=== PATIENT | male | born 1975 | race Caucasian/White ===

== ENCOUNTER → 2017-11-26 | Outpatient (CLI) | payer OTHER ==
[2017-11-26 07:19] LABS: BASO # 0.1 10^3/uL (0.0-0.2); EOS # 0.3 10^3/uL (0.0-0.50); EOS % 4.1 % (0.0-3.0); HEMATOCRIT 45.7 % (42.0-52.0); HEMOGLOBIN 16.1 g/dl (13.5-17.5); IMMATURE GRANULOCYTE % 0.4 % (0-3.0); LYMPH # 2.9 10^3/uL (1.5-4.5); LYMPH % 41.8 % (24.0-44.0); MEAN CORPUSCULAR HEMOGLOBIN 29.7 pg (27.0-33.0); MEAN CORPUSCULAR HGB CONC 35.2 g/dl (32.0-36.5); MEAN CORPUSCULAR VOLUME 84.3 fl (80.0-96.0); MONO # 0.8 10^3/uL (0.0-0.8); MONO % 11.1 % (0.0-5.0); NEUTROPHILS # 2.9 10^3/uL (1.8-7.7); NEUTROPHILS % 41.6 % (36.0-66.0); PLATELET COUNT, AUTOMATED 215 10^3/uL (150-450); RED BLOOD COUNT 5.42 10^6/uL (4.30-6.10); RED CELL DISTRIBUTION WIDTH 13.2 % (11.5-14.5); WHITE BLOOD COUNT 6.9 10^3/uL (4.0-10.0)
[2017-11-26 07:24] LABS: APPEARANCE, URINE CLEAR (CLEAR); BACTERIA, URINE AUTO NEGATIVE (NEGATIVE); BILIRUBIN, URINE AUTO NEGATIVE (NEGATIVE); BLOOD, URINE BLOOD NEGATIVE (NEGATIVE); COLOR, URINE YELLOW (YELLOW); GLUCOSE, URINE (UA) AUTO NEGATIVE (NEGATIVE); KETONE, URINE AUTO NEGATIVE (NEGATIVE); LEUKOCYTE ESTERASE, URINE AUTO NEGATIVE (NEGATIVE); MUCUS, URINE SMALL (NEGATIVE); NITRITE, URINE AUTO NEGATIVE (NEGATIVE); PROTEIN, URINE AUTO NEGATIVE (NEGATIVE); RBC, URINE AUTO 3 /HPF (0-3); SPECIFIC GRAVITY URINE AUTO 1.019 (1.002-1.035); SQUAMOUS EPITHELIAL CELL UR AU 0 /HPF (0-6); WBC, URINE AUTO 0 /HPF (0-3)
[2017-11-26 07:44] LABS: ALBUMIN 3.6 GM/DL (3.2-5.2); ALBUMIN/GLOBULIN RATIO 0.97 (1.00-1.93); ALKALINE PHOSPHATASE 107 U/L (45-117); ALT/SGPT 158 U/L (12-78); ANION GAP 7 MEQ/L (8-16); AST/SGOT 75 U/L (7-37); BILIRUBIN,TOTAL 0.5 MG/DL (0.2-1.0); BLOOD UREA NITROGEN 16 MG/DL (7-18); CALCIUM LEVEL 8.6 MG/DL (8.5-10.1); CARBON DIOXIDE LEVEL 28 MEQ/L (21-32); CHLORIDE LEVEL 107 MEQ/L (98-107); CREATININE FOR GFR 0.88 MG/DL (0.70-1.30); GLOMERULAR FILTRATION RATE > 60.0 (>60); GLUCOSE, FASTING 114 MG/DL (70-100); POTASSIUM SERUM 4.5 MEQ/L (3.5-5.1); SODIUM LEVEL 142 MEQ/L (136-145); TOTAL PROTEIN 7.3 GM/DL (6.4-8.2)
[2017-11-26 10:37] LABS: HEPATITIS B SURFACE ANTIGEN NEGATIVE (NEGATIVE)
[2017-11-26 10:45] LABS: HEPATITIS B SURFACE ANTIBODY POSITIVE (POSITIVE)
[2017-11-26 10:54] LABS: HEPATITIS B CORE ANTIBODY IGM NEGATIVE (NEGATIVE)
[2017-11-26 10:56] LABS: HEPATITIS A ANTIBODY IGM NEGATIVE (NEGATIVE)
[2017-11-26 11:14] LABS: HEPATITIS C VIRUS ABY INDEX > 11.0 INDEX (<0.8)
[2017-11-29 08:19] LABS: HCV RNA NAA QUALITATIVE Positive (Negative)
== END ==
LOC: M LAB 06:17
DX: F15.20 Other stimulant dependence, uncomplicated (principal); G25.9 Extrapyramidal and movement disorder, unspecified
CPT/HCPCS: 84460

== ENCOUNTER 2018-01-07 11:02 | Emergency (ER) | payer OTHER ==
[2018-01-07] MEDS: methylPREDNISolone INJ 125 MG/2 ML VIAL (J2930) IM (13:07)
[2018-01-07] MEDS: ACETAMINOPHEN 325 MG TAB PO (13:08)
[2018-01-07] MEDS: METAXALONE 800 MG TABLET PO (13:17)
== END 2018-01-07 13:34 | disposition home or self-care (01) ==
LOC: M ED 11:02
DX: M54.9 Dorsalgia, unspecified (principal); G89.29 Other chronic pain; F31.9 Bipolar disorder, unspecified; F17.210 Nicotine dependence, cigarettes, uncomplicated; Z79.899 Other long term (current) drug therapy
CPT/HCPCS: J2930

== ENCOUNTER → 2018-01-25 | Outpatient (REF) | payer OTHER ==
[2018-01-25 11:03] LABS: ALBUMIN 3.4 GM/DL (3.2-5.2); ALBUMIN/GLOBULIN RATIO 0.97 (1.00-1.93); ALKALINE PHOSPHATASE 68 U/L (45-117); ALT/SGPT 39 U/L (12-78); AST/SGOT 18 U/L (7-37); BILIRUBIN,DIRECT < 0.1 MG/DL (0.0-0.2); BILIRUBIN,TOTAL 0.4 MG/DL (0.2-1.0); TOTAL PROTEIN 6.9 GM/DL (6.4-8.2)
[2018-01-27 14:14] LABS: HEPATITIS C QUANTITATION <15 IU/mL (.)
== END ==
LOC: M SFHCPLAZ 08:25
DX: B18.2 Chronic viral hepatitis C (principal)
CPT/HCPCS: 80076

== ENCOUNTER → 2018-03-29 | Outpatient (REF) | payer OTHER ==
[2018-03-29 11:11] LABS: ALBUMIN 3.8 GM/DL (3.2-5.2); ALBUMIN/GLOBULIN RATIO 1.12 (1.00-1.93); ALKALINE PHOSPHATASE 70 U/L (45-117); ALT/SGPT 43 U/L (12-78); AST/SGOT 23 U/L (7-37); BILIRUBIN,DIRECT < 0.1 MG/DL (0.0-0.2); BILIRUBIN,TOTAL 0.3 MG/DL (0.2-1.0); TOTAL PROTEIN 7.2 GM/DL (6.4-8.2)
[2018-03-31 17:43] LABS: HEPATITIS C QUANTITATION HCV Not Detected IU/mL (.)
== END ==
LOC: M SFHCPLAZ 08:25
DX: B18.2 Chronic viral hepatitis C (principal)
CPT/HCPCS: 80076

== ENCOUNTER → 2018-10-19 | Outpatient (CLI) | payer OTHER ==
[~2018-10-19] MED LIST: APAP500T10 PO; GEOD20CA14 PO; MEDR4PAK PO; MOTR200T44 PO; TRIL1TAB PO; ZANA4TAB PO
[2018-10-19 10:16] LABS: APPEARANCE, URINE CLEAR (CLEAR); BACTERIA, URINE AUTO NEGATIVE (NEGATIVE); BILIRUBIN, URINE AUTO NEGATIVE (NEGATIVE); BLOOD, URINE BLOOD NEGATIVE (NEGATIVE); COLOR, URINE YELLOW (YELLOW); GLUCOSE, URINE (UA) AUTO NEGATIVE (NEGATIVE); KETONE, URINE AUTO NEGATIVE (NEGATIVE); LEUKOCYTE ESTERASE, URINE AUTO NEGATIVE (NEGATIVE); MUCUS, URINE SMALL (NEGATIVE); NITRITE, URINE AUTO NEGATIVE (NEGATIVE); PROTEIN, URINE AUTO NEGATIVE (NEGATIVE); RBC, URINE AUTO 4 /HPF (0-3); SPECIFIC GRAVITY URINE AUTO 1.024 (1.002-1.035); SQUAMOUS EPITHELIAL CELL UR AU 0 /HPF (0-6); UROBILINOGEN, URINE AUTO 0.2 mg/dL (0.0-2.0); WBC, URINE AUTO 0 /HPF (0-3)
[2018-10-19 10:17] LABS: BASO # 0.1 10^3/uL (0.0-0.2); BASO % 1.1 % (0.0-1.0); EOS # 0.3 10^3/uL (0.0-0.50); EOS % 4.3 % (0.0-3.0); HEMATOCRIT 44.3 % (42.0-52.0); HEMOGLOBIN 15.4 g/dl (13.5-17.5); LYMPH # 2.6 10^3/uL (1.5-4.5); LYMPH % 36.9 % (24.0-44.0); MEAN CORPUSCULAR HEMOGLOBIN 30.9 pg (27.0-33.0); MEAN CORPUSCULAR HGB CONC 34.8 g/dl (32.0-36.5); MEAN CORPUSCULAR VOLUME 88.8 fl (80.0-96.0); MONO # 0.7 10^3/uL (0.0-0.8); MONO % 9.7 % (0.0-5.0); NEUTROPHILS # 3.3 10^3/uL (1.8-7.7); NEUTROPHILS % 47.7 % (36.0-66.0); PLATELET COUNT, AUTOMATED 248 10^3/uL (150-450); RED BLOOD COUNT 4.99 10^6/uL (4.30-6.10)
[2018-10-19 11:54] LABS: ALBUMIN 3.2 GM/DL (3.2-5.2); BILIRUBIN,TOTAL 0.5 MG/DL (0.2-1.0); BLOOD UREA NITROGEN 24 MG/DL (7-18); CALCIUM LEVEL 8.4 MG/DL (8.5-10.1); CARBON DIOXIDE LEVEL 25 MEQ/L (21-32); CHLORIDE LEVEL 104 MEQ/L (98-107); CREATININE FOR GFR 1.02 MG/DL (0.70-1.30); GLOMERULAR FILTRATION RATE > 60.0 (>60); GLUCOSE, FASTING 130 MG/DL (70-100); HEPATITIS A ANTIBODY IGM NEGATIVE (NEGATIVE); HEPATITIS B CORE ANTIBODY IGM NEGATIVE (NEGATIVE); HEPATITIS B SURFACE ANTIGEN NEGATIVE (NEGATIVE); POTASSIUM SERUM 4.3 MEQ/L (3.5-5.1); SODIUM LEVEL 135 MEQ/L (136-145)
[2018-10-19 11:55] LABS: HEPATITIS C VIRUS ABY INDEX > 11.0 INDEX (<0.8)
[2018-10-19 13:21] LABS: ALT/SGPT 90 U/L (12-78)
== END ==
LOC: M LAB 09:03
PROVIDERS: ATTEND Physician Assistant Medical
DX: Z02.2 Encounter for examination for admission to residential institution (principal)

== ENCOUNTER → 2018-10-19 | Outpatient (CLI) | payer OTHER ==
[2018-10-19 10:16] LABS: HEMATOCRIT 43.4 % (42.0-52.0); HEMOGLOBIN 15.1 g/dl (13.5-17.5); MEAN CORPUSCULAR HEMOGLOBIN 30.2 pg (27.0-33.0); MEAN CORPUSCULAR HGB CONC 34.8 g/dl (32.0-36.5); MEAN CORPUSCULAR VOLUME 86.8 fl (80.0-96.0); PLATELET COUNT, AUTOMATED 245 10^3/uL (150-450); WHITE BLOOD COUNT 7.4 10^3/uL (4.0-10.0)
[2018-10-19 11:54] LABS: ALBUMIN 3.2 GM/DL (3.2-5.2); BILIRUBIN,TOTAL 0.4 MG/DL (0.2-1.0); BLOOD UREA NITROGEN 23 MG/DL (7-18); CALCIUM LEVEL 8.5 MG/DL (8.5-10.1); CARBON DIOXIDE LEVEL 25 MEQ/L (21-32); CHLORIDE LEVEL 104 MEQ/L (98-107); CREATININE FOR GFR 1.03 MG/DL (0.70-1.30); GLOMERULAR FILTRATION RATE > 60.0 (>60); GLUCOSE, FASTING 132 MG/DL (70-100); HEPATITIS B SURFACE ANTIGEN NEGATIVE (NEGATIVE); HIV 1&2 SCREEN CENTAUR NEGATIVE (NEGATIVE); POTASSIUM SERUM 4.4 MEQ/L (3.5-5.1); SODIUM LEVEL 135 MEQ/L (136-145)
[2018-10-19 11:55] LABS: HEPATITIS C VIRUS ABY INDEX > 11.0 INDEX (<0.8)
[2018-10-19 12:35] LABS: CHLAMYDIA DNA AMPLIFICATION NEGATIVE (NEGATIVE); GC DNA AMPLIFICATION NEGATIVE (NEGATIVE)
[2018-10-19 13:22] LABS: ALT/SGPT 90 U/L (12-78)
--- NOTE | 2018-10-20 19:07 | ECGEPIP ---
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
== END ==
LOC: M LAB 08:53
PROVIDERS: ATTEND Family Medicine
DX: F11.20 Opioid dependence, uncomplicated (principal)

== ENCOUNTER → 2018-10-25 | Outpatient (CLI) | payer OTHER ==
[~2018-10-25] MED LIST changes: +ACET-683 PO; +ACET1TAB55 PO; +BUPR150T3 PO; +HYDR50CA2 PO; +IBUP1TAB6 PO; +LITH150C PO; +LITH300C PO; +METH10TA2 PO; +METH5SOL PO; +OLAN10TA2 PO; +OMEP-218 PO; +TRIA1OI80 TOP
[2018-10-25 08:04] LABS: ALBUMIN 3.6 GM/DL (3.2-5.2); ALT/SGPT 60 U/L (12-78); BILIRUBIN,TOTAL 0.3 MG/DL (0.2-1.0); BLOOD UREA NITROGEN 21 MG/DL (7-18); CALCIUM LEVEL 8.8 MG/DL (8.5-10.1); CARBON DIOXIDE LEVEL 26 MEQ/L (21-32); CHLORIDE LEVEL 104 MEQ/L (98-107); CHOLESTEROL LEVEL 258 MG/DL (<200); CHOLESTEROL RISK RATIO 8.896 (<5); GLOMERULAR FILTRATION RATE > 60.0 (>60); GLUCOSE, FASTING 138 MG/DL (70-100); HDL CHOLESTEROL 29 MG/DL (>40); LITHIUM LEVEL 0.33 MEQ/L (0.60-1.20); NON-HDL-C 229 MG/DL; POTASSIUM SERUM 3.9 MEQ/L (3.5-5.1); SODIUM LEVEL 138 MEQ/L (136-145); TOTAL PROTEIN 6.7 GM/DL (6.4-8.2); TRIGLYCERIDES LEVEL 687 MG/DL (<150)
[2018-10-25 11:40] LABS: HEMOGLOBIN A1c 5.7 %
== END ==
LOC: M LAB 06:51
PROVIDERS: ATTEND Nurse Practitioner Family
DX: Z51.81 Encounter for therapeutic drug level monitoring (principal); F31.9 Bipolar disorder, unspecified

== ENCOUNTER 2018-10-29 09:44 | Emergency (ER) | payer OTHER ==
[~2018-10-29] VITALS: Ht 177.8 cm; Wt 110.6 kg
[~2018-10-29 09:44] MED LIST changes: -ACET-683 PO; -ACET1TAB55 PO; -BUPR150T3 PO; -HYDR50CA2 PO; -IBUP1TAB6 PO; -LITH150C PO; -LITH300C PO; -METH10TA2 PO; -METH5SOL PO; -OLAN10TA2 PO; -OMEP-218 PO; -TRIA1OI80 TOP
[2018-10-29] MEDS ORDERED: NS 1,000 ML IV ONE (10:15)
[2018-10-29] MEDS ORDERED: ACETAMINOPHEN 325 MG TAB PO ONE (10:45)
--- NOTE | 2018-10-29 10:55 | REP ---
Clinical: Acute chest pain . Comparison: None . Findings: The mediastinum and cardiac silhouette are stable and within normal limits for portable technique. The lung means are clear without acute consolidation, effusion, or pneumothorax. Skeletal structures are intact. Impression: No acute cardiopulmonary process appreciated. Electronically Signed by Stanislav Aceves MD 10/29/2018 10:46 A
[2018-10-29 11:00] LABS: ALBUMIN 3.2 GM/DL (3.2-5.2); ALT/SGPT 38 U/L (12-78); BILIRUBIN,DIRECT 0.1 MG/DL (0.0-0.2); BILIRUBIN,TOTAL 0.4 MG/DL (0.2-1.0); BLOOD UREA NITROGEN 18 MG/DL (7-18); CALCIUM LEVEL 8.1 MG/DL (8.5-10.1); CARBON DIOXIDE LEVEL 27 MEQ/L (21-32); CHLORIDE LEVEL 102 MEQ/L (98-107); CPK CREATINE PHOSPHOKINASE 327 U/L (39-308); CREATININE FOR GFR 1.07 MG/DL (0.70-1.30); FREE T4 0.83 NG/DL (0.76-1.46); GLOMERULAR FILTRATION RATE > 60.0 (>60); GLUCOSE, FASTING 111 MG/DL (70-100); LIPASE 147 U/L (73-393); MB/CK RELATIVE INDEX 1.22 (< OR =4); POTASSIUM SERUM 4.2 MEQ/L (3.5-5.1); SODIUM LEVEL 134 MEQ/L (136-145); TROPONIN I < 0.02 NG/ML (< 0.10)
[2018-10-29 11:05] VITALS: BP 121/76
[2018-10-29 11:05] LABS: INFLUENZA A AMPLIFICATION NEGATIVE (NEGATIVE); INFLUENZA B AMPLIFICATION NEGATIVE (NEGATIVE)
--- NOTE | 2018-10-29 11:05 | REP ---
Clinical: Lower extremity pain and swelling with erythema . Technique: Casas scale and color Doppler evaluation using linear high frequency transducer. Findings: Ultrasound examination of the right and left lower extremity deep venous structures from the common femoral vein to the popliteal vein demonstrates normal compressibility flow and wave patterns in response to respiration and augmentation. There is no evidence for deep venous thrombosis. Impression: No evidence for deep venous thrombosis of the bilateral lower extremities . Electronically Signed by Stanislav Aceves MD 10/29/2018 10:57 A
[2018-10-29 11:34] LABS: BASO % 0.3 % (0.0-1.0); EOS # 0.2 10^3/uL (0.0-0.50); EOS % 1.9 % (0.0-3.0); HEMATOCRIT 39.1 % (42.0-52.0); HEMOGLOBIN 13.2 g/dl (13.5-17.5); LYMPH # 1.5 10^3/uL (1.5-4.5); LYMPH % 12.5 % (24.0-44.0); MEAN CORPUSCULAR HEMOGLOBIN 30.2 pg (27.0-33.0); MEAN CORPUSCULAR HGB CONC 33.8 g/dl (32.0-36.5); MEAN CORPUSCULAR VOLUME 89.5 fl (80.0-96.0); MONO # 1.7 10^3/uL (0.0-0.8); MONO % 14.2 % (0.0-5.0); NEUTROPHILS # 8.4 10^3/uL (1.8-7.7); NEUTROPHILS % 70.5 % (36.0-66.0); PLATELET COUNT, AUTOMATED 169 10^3/uL (150-450); RED BLOOD COUNT 4.37 10^6/uL (4.30-6.10); WHITE BLOOD COUNT 11.9 10^3/uL (4.0-10.0)
[2018-10-29] MEDS ORDERED: DALBAVANCIN 1,500 MG in D5W 500 ML IV SCH (12:00)
[2018-10-29 12:10] LABS: ERYTHROCYTE SEDIMENTATION RATE 27 mm/hr (0-15)
--- NOTE | 2018-10-29 19:30 | ECGEPIP ---
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
== END 2018-10-29 13:18 | disposition left against medical advice (07) ==
LOC: M ED 09:44
DX: L03.115 Cellulitis of right lower limb (principal); L03.116 Cellulitis of left lower limb; I47.1 Supraventricular tachycardia; F17.200 Nicotine dependence, unspecified, uncomplicated; F14.10 Cocaine abuse, uncomplicated
CPT/HCPCS: 36415; 71045; 80048; 80076; 81001; 82550; 82553; 83605; 83690; 84439; 84443; 85025; 85652; 86140; 87040; 87502; 93005; 93041; 93970; 94760; 96374; 99285; J0875

== ENCOUNTER 2018-10-31 14:17 | Observation (INO) | payer OTHER ==
[~2018-10-31] VITALS: Ht 177.8 cm; Wt 110.7 kg
[2018-10-31] MEDS ORDERED: HYDR50CA2 PO (14:26)
[2018-10-31] MEDS ORDERED: OMEP-218 PO (14:26)
[2018-10-31] MEDS ORDERED: LITH150C PO (14:26)
[2018-10-31] MEDS ORDERED: BUPR150T3 PO (14:26)
[2018-10-31] MEDS ORDERED: OLAN10TA2 PO (14:26)
[2018-10-31] MEDS ORDERED: METH10TA2 PO (14:26)
[2018-10-31] MEDS ORDERED: LITH300C PO (14:26)
[2018-10-31 15:48] LABS: BASO # 0.1 10^3/uL (0.0-0.2); BASO % 0.6 % (0.0-1.0); EOS # 0.4 10^3/uL (0.0-0.50); EOS % 4.6 % (0.0-3.0); HEMATOCRIT 39.5 % (42.0-52.0); HEMOGLOBIN 13.3 g/dl (13.5-17.5); LYMPH # 1.8 10^3/uL (1.5-4.5); LYMPH % 19.8 % (24.0-44.0); MEAN CORPUSCULAR HEMOGLOBIN 30.2 pg (27.0-33.0); MEAN CORPUSCULAR HGB CONC 33.7 g/dl (32.0-36.5); MEAN CORPUSCULAR VOLUME 89.6 fl (80.0-96.0); MONO # 0.9 10^3/uL (0.0-0.8); MONO % 9.9 % (0.0-5.0); NEUTROPHILS # 5.7 10^3/uL (1.8-7.7); NEUTROPHILS % 64.9 % (36.0-66.0); PLATELET COUNT, AUTOMATED 204 10^3/uL (150-450); RED BLOOD COUNT 4.41 10^6/uL (4.30-6.10); WHITE BLOOD COUNT 8.9 10^3/uL (4.0-10.0)
[2018-10-31] MEDS ORDERED: KETOROLAC 30 MG/ML VIAL (J1885) IV ONE (16:00)
[2018-10-31] MEDS ORDERED: NS 1,000 ML IV ONE (16:00)
[2018-10-31 16:01] LABS: BLOOD UREA NITROGEN 14 MG/DL (7-18); CALCIUM LEVEL 8.2 MG/DL (8.5-10.1); CARBON DIOXIDE LEVEL 32 MEQ/L (21-32); CHLORIDE LEVEL 100 MEQ/L (98-107); CREATININE FOR GFR 1.04 MG/DL (0.70-1.30); GLOMERULAR FILTRATION RATE > 60.0 (>60); GLUCOSE, FASTING 152 MG/DL (70-100); POTASSIUM SERUM 3.9 MEQ/L (3.5-5.1); SODIUM LEVEL 138 MEQ/L (136-145)
[2018-10-31 16:16] LABS: ERYTHROCYTE SEDIMENTATION RATE 42 mm/hr (0-15)
--- NOTE | 2018-10-31 17:02 | REP ---
Clinical: Bilateral pain and swelling with cellulitis. Technique: Casas scale and color Doppler evaluation using linear high frequency transducer. Findings: Ultrasound examination of the right and left lower extremity deep venous structures from the common femoral vein to the popliteal vein demonstrates normal compressibility flow and wave patterns in response to respiration and augmentation. There is no evidence for deep venous thrombosis. Mild subcutaneous edema is appreciated along with bilateral inguinal lymph nodes measuring up to 5.1 x 1.1 x 1.7 cm on the right and 4.1 x 2.6 x 1.1 cm on the left. Impression: No evidence for deep venous thrombosis. Mild edema and inguinal adenopathy. Electronically Signed by Stanislav Aceves MD 10/31/2018 04:54 P
[2018-10-31] MEDS ORDERED: MOM 30ML SUSPENSION UDC PO PRN (18:00)
[2018-10-31] MEDS ORDERED: ACETAMINOPHEN TAB 650MG DOSE (2X325MG) PO PRN (18:00)
[2018-10-31 18:05] LABS: ALBUMIN 3.2 GM/DL (3.2-5.2); ALT/SGPT 39 U/L (12-78); BILIRUBIN,DIRECT 0.2 MG/DL (0.0-0.2); BILIRUBIN,TOTAL 0.5 MG/DL (0.2-1.0); NT-PRO BNP 95 PG/ML (<125)
[2018-10-31] MEDS ORDERED: IBUP1TAB6 PO (18:23)
[2018-10-31] MEDS ORDERED: ACET1TAB55 PO (18:23)
[2018-10-31] MEDS ORDERED: ACET-683 PO (18:23)
[2018-10-31] MEDS ORDERED: METH5SOL PO (18:23)
[2018-10-31] MEDS ORDERED: VANCOMYCIN HCL 1,000 MG, VIAL MATE ADAPTER 1 EACH in D5W 250 ML IV ONE ×2 (18:30→19:30)
--- NOTE | 2018-10-31 18:57 | HPEPDOC ---
General Date of Admission 10/31/2018 Date of Service: October 31, 2018 Attending Physician: MICHELLE ALBRECHT MD Chief Complaint The patient is a 43-year-old male admitted with a reason for visit of Recheck. Source: Patient Exam Limitations: No limitations Timing/Duration: Day(s) Severity: Moderate Associated Symptoms: Rash History of Present Illness Patient is a 43-year-old male, past medical history significant for polysubstance abuse with IV cocaine, nicotine dependence, hepatitis C, bipolar disorder, currently resident of a [facility], presenting to the emergency room for the second time on account of cellulitis. Patient states Wednesday last week he was about to get dressed when he noticed redness to his legs.Hoping it would resolve, he did seek medical attention until Wednesday, which was almost 4 days later. In the emergency room, patient was treated with antibiotic therapy-Dalvance. He left prior to further evaluation. ED providers had recommended staying for further evaluation and management. During that presentation. Patient also had an episode of SVT. Patient reports his heart rate went as high as 240s. He returned to the emergency room today when cellulitis was not improving. Laboratory data was abnormal for elevated C-reactive protein. Concerned about worsening infectious process. Hospitalist team was endorsed for evaluation for admission. On assessment. He denies any chills, fever, chest pain, shortness of breath. He complains about soreness and tenderness to bilateral lower extremity. He denies wearing any long socks along shoes which may have caused contact dermatitis. He also denies working in any kind of chemical environment or exposure to any chemicals. Of note, patient states he was diagnosed with, and treated for hepati tis C with last year. He also did present to the emergency room in August with cellulitis which was treated. Home Medications Scheduled Bupropion Hcl (Bupropion Xl) 150 Mg Tab.er.24h, 150 MG PO DAILY, (Reported) Hydroxyzine Pamoate (Hydroxyzine Pamoate) 50 Mg Capsule, 50 MG PO QHS, (Reported) Harrah Carbonate (Harrah Carbonate) 150 Mg Capsule, 150 MG PO BID, (Reported) TAKE WITH 300MG CAP. 450MG TOTAL Harrah Carbonate (Harrah Carbonate) 300 Mg Capsule, 300 MG PO BID, (Reported) TAKE WITH 150MG CAP. 450MG TOTAL Methadone HCl (Methadone HCl) 5 Mg/5 Ml Solution, 30 MG PO DAILY, (Reported) Olanzapine (Olanzapine) 10 Mg Tablet, 10 MG PO QHS, (Reported) Omeprazole (Omeprazole) 20 Mg Capsule.dr, 20 MG PO DAILY, (Reported) Scheduled PRN Acetaminophen (Acetaminophen) 500 Mg Tablet, 1,000 MG PO Q6H PRN for PAIN / FEVER, (Reported) Ibuprofen (Ibuprofen) 600 Mg Tablet, 600 MG PO Q8H PRN for PAIN, (Reported) Allergies Coded Allergies: No Known Allergies (Unverified , 01/07/18) Past Medical History Medical History Bipolar disorder Polysubstance abuse with cocaine Hepatitis C Anxiety Nicotine dependence Surgical History Cholecystectomy Carpal tunnel release Family History Father: Non-Hodgkin's lymphoma Social History * Smoker: greater than 1 pack/day Alcohol: Denies Drugs: cocaine, IV drug use A-FIB/CHADSVASC A-FIB History Current/History of A-Fib/PAF?: No Current PO Anticoag Therapy: No Review of Systems Other systems A 10 point pertinent review of systems was completed, negative except as stated in the history of presenting illness. Physical Examination General Exam: Positive: Alert, Cooperative, No Acute Distress Eye Exam: Positive: PERRLA, Conjunctiva & lids normal, EOMI ENT Exam: Positive: Atraumatic, Mucous membr. moist/pink Neck Exam: Positive: Supple; Negative: JVD, thyromegaly Chest Exam: Positive: Clear to auscultation, Normal air movement; Negative: Rales, Rhonchi, Wheezing Heart Exam: Positive: Rate Normal, Regular Rhythm, Normal S1, Normal S2; Negative: Murmurs Abdomen Exam: Positive: Normal bowel sounds, Soft; Negative: Tenderness Extremity Exam: Positive: Edema, Tenderness, Swelling, Other (bilateral lower extremity erythema, swelling, cellulitis demarcated from knee to feet) Skin Exam: Positive: Rash, Lesion Neuro Exam: Positive: Normal Speech, Strength at 5/5 X4 ext, Cranial Nerves 3- 12 NL Psych Exam: Positive: Anxiety, Oriented x 3 Vital Signs Vital Signs Date Time Temp Pulse Resp B/P (MAP) Pulse Ox O2 Delivery O2 Flow Rate FiO2 10/31/18 15:34 10/31/18 14:18 98.0 103 20 97 Room Air Laboratory Data Labs 24H Laboratory Tests 2 10/31/18 15:30: Anion Gap 6L, Glomerular Filtration Rate > 60.0, Calcium Level 8.2L, Aspartate Amino Transf (AST/SGOT) 29, Alanine Aminotransferase (ALT/SGPT) 39, Alkaline Phosphatase 66, Total Bilirubin 0.5, Direct Bilirubin 0.2, C-Reactive Protein, Quantitative 10.90H, WM-Bde-D-Type Natriuretic Peptide 95, Total Protein 7.0, Albumin 3.2, Albumin/Globulin Ratio 0.84L 10/31/18 15:31: Immature Granulocyte % (Auto) 0.2, White Blood Count 8.9, Red Blood Count 4.41, Hemoglobin 13.3L, Hematocrit 39.5L, Mean Corpuscular Volume 89.6, Mean Corpuscular Hemoglobin 30.2, Mean Corpuscular Hemoglobin Concent 33.7, Red Cell Distribution Width 12.7, Platelet Count 204, Neutrophils (%) (Auto) 64.9, Lymphocytes (%) (Auto) 19.8L, Monocytes (%) (Auto) 9.9H, Eosinophils (%) (Auto) 4.6H, Basophils (%) (Auto) 0.6, Neutrophils # (Auto) 5.7, Lymphocytes # (Auto) 1.8, Monocytes # (Auto) 0.9H, Eosinophils # (Auto) 0.4, Basophils # (Auto) 0.1, Nucleated Red Blood Cells % (auto) 0.0, Erythrocyte Sedimentation Rate 42H CBC/BMP Laboratory Tests 10/31/18 15:30 10/31/18 15:31 Red Blood Count 4.41, Mean Corpuscular Volume 89.6, Mean Corpuscular Hemoglobin 30.2, Mean Corpuscular Hemoglobin Concent 33.7, Red Cell Distribution Width 12.7, Neutrophils (%) (Auto) 64.9, Lymphocytes (%) (Auto) 19.8 L, Monocytes (%) (Auto) 9.9 H, Eosinophils (%) (Auto) 4.6 H, Basophils (%) (Auto) 0.6, N eutrophils # (Auto) 5.7, Lymphocytes # (Auto) 1.8, Monocytes # (Auto) 0.9 H, Eosinophils # (Auto) 0.4, Basophils # (Auto) 0.1 Microbiology Microbiology 10/31/18 Blood Culture, Received Pending Problems (1) Cellulitis Status: Acute Problem Text: -Treated with Dalvance 3 days ago with no improvement -start on vancomycin with PTD- patient is a resident of a [facility] with possible exposure to MRSA -consult Dermatology when holidays are over for input given suspicion for possible non infectious etiology -consider addition of steroid therapy is no improvement with antibiotic therapy (2) GERD (gastroesophageal reflux disease) Problem Text: -continue proton pump inhibitor (3) Bipolar disorder (manic depression) Problem Text: -continue welbutrin, olanzapine, lithium (4) Paroxysmal SVT (supraventricular tachycardia) Status: Acute Problem Text: -seen during ED visit last wednesday -place on monitored unit to monitor for reoccurrence (5) Polysubstance abuse Problem Text: -currently on methadone -continue (6) Nicotine dependence Problem Text: -continue welbutrin -nicoderm to help with cravings (7) DVT prophylaxis Problem Text: -Lovenox 40 mg subcutaneous daily (8) Advance care planning Problem Text: -CODE STATUS is full resuscitation Plan / VTE VTE Prophylaxis Ordered?: Yes DANTE REYES October 31, 2018 18:57
[2018-10-31 20:40] VITALS: BP 137/81
[2018-10-31] MEDS: hydrOXYzine 50 MG TAB PO SCH (20:58)
[2018-10-31] MEDS: ENOXAPARIN 40 MG/0.4 ML SYRINGE (J1650) SC SCH (20:59)
--- NOTE | 2018-10-31 21:13 | ECGEPIP ---
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
[2018-10-31] MEDS: OLANZapine 10 MG TAB PO SCH (21:51)
[2018-10-31] MEDS: LITHIUM CARBONATE 300 MG CAP PO SCH (21:51)
--- NOTE | 2018-10-31 23:11 | PHACANCOPD ---
PHARMACY VANCOMYCIN DOSING Pt Demographics Demographics Patient Age:43 , Weight:110.000 , Gender: male Adjusted Body Weight Events Past 24 Hours Events Past 24 Hours: NO: Dialysis, Diuretic Therapy, Change in CrCl, Fever, Elevation in WBC, Pending Diagnostics, Pending Procedures, Other Vancomycin Vancomycin indication: SSSI BILATERAL LE CELLULITIS Vancomycin Target Ranges: 15-20 mcg/ml Vancomycin Load Y/N: Yes Load Dose Date Time Vancomycin Load Dose: 2GM Date: 10/31/18 Time: 21:00 Vancomycin Dose Date: 11/01/18. Current Vancomycin Dose: [1GM IV Q8H start @04:00] Intermittent Dosing?: No Labs Labs Laboratory Tests 10/31/18 15:30 10/31/18 15:31 Red Blood Count 4.41, Mean Corpuscular Volume 89.6, Mean Corpuscular Hemoglobin 30.2, Mean Corpuscular Hemoglobin Concent 33.7, Red Cell Distribution Width 12.7, Neutrophils (%) (Auto) 64.9, Lymphocytes (%) (Auto) 19.8 L, Monocytes (%) (Auto) 9.9 H, Eosinophils (%) (Auto) 4.6 H, Basophils (%) (Auto) 0.6, Neutrophils # (Auto) 5.7, Lymphocytes # (Auto) 1.8, Monocytes # (Auto) 0.9 H, Eosinophils # (Auto) 0.4, Basophils # (Auto) 0.1 Micro Microbiology 10/31/18 Blood Culture, Received Pending 10/31/18 Blood Culture, Received Pending Creatinine Clearance Date:10/31/18. Creatinine Clearance: [>80ml/min]. Assessment and Plan Maintaining Current Dose?: Yes Reason for dose change: No Dose Change Pharmacist Note Pharmacist Note Date: 10/31/18. PharmD note: VANCO 2GM LOAD DOSE GIVEN AT 21:00. WE WILL CONTINUE WITH VANCO 1GM IV Q8H STARTING AT 4AM 11/01. WE WILL OBTAIN A VANCO TROUGH WHEN AT [facility] October 31, 2018 23:11
[2018-11-01 02:00] VITALS: BP 135/87
[2018-11-01] MEDS ORDERED: VANCOMYCIN HCL 1,000 MG, VIAL MATE ADAPTER 1 EACH in D5W 250 ML IV SCH (04:00)
[2018-11-01 05:50] LABS: HEMATOCRIT 38.8 % (42.0-52.0); HEMOGLOBIN 12.8 g/dl (13.5-17.5); MEAN CORPUSCULAR HEMOGLOBIN 29.5 pg (27.0-33.0); MEAN CORPUSCULAR VOLUME 89.4 fl (80.0-96.0); PLATELET COUNT, AUTOMATED 188 10^3/uL (150-450); RED BLOOD COUNT 4.34 10^6/uL (4.30-6.10); WHITE BLOOD COUNT 6.4 10^3/uL (4.0-10.0)
[2018-11-01 06:00] VITALS: BP 138/76
[2018-11-01 06:11] LABS: ALBUMIN 2.8 GM/DL (3.2-5.2); ALT/SGPT 35 U/L (12-78); BILIRUBIN,TOTAL 0.6 MG/DL (0.2-1.0); BLOOD UREA NITROGEN 13 MG/DL (7-18); CALCIUM LEVEL 7.9 MG/DL (8.5-10.1); CARBON DIOXIDE LEVEL 29 MEQ/L (21-32); CHLORIDE LEVEL 104 MEQ/L (98-107); CREATININE FOR GFR 0.97 MG/DL (0.70-1.30); GLOMERULAR FILTRATION RATE > 60.0 (>60); GLUCOSE, FASTING 128 MG/DL (70-100); SODIUM LEVEL 138 MEQ/L (136-145); TOTAL PROTEIN 6.8 GM/DL (6.4-8.2)
[2018-11-01] MEDS: ENOXAPARIN 40 MG/0.4 ML SYRINGE (J1650) SC SCH (09:00)
[2018-11-01] MEDS: buPROPion **XL** TABLET 150MG (WELLBUTRIN XL) PO SCH (09:08)
[2018-11-01] MEDS: LITHIUM CARBONATE 300 MG CAP PO SCH ×2 (09:08→20:12)
[2018-11-01] MEDS: PANTOPRAZOLE 40MG TAB (PROTONIX) PO SCH (09:08)
[2018-11-01 10:00] VITALS: BP 147/70
[2018-11-01] MEDS ORDERED: METHADONE 10 MG TAB (S0109) PO ONE (10:45)
[2018-11-01] MEDS: METHADONE 10 MG TAB (S0109) PO SCH (11:07)
[2018-11-01 14:00] VITALS: BP 135/76
[2018-11-01] MEDS: TRIAMCINOLONE ACET 0.1% OINTMENT 15 GM TOP SCH ×2 (14:32→20:12)
--- NOTE | 2018-11-01 15:54 | IPNPDOC ---
Date Seen The patient was seen on 11/01/18. Progress Note SUBJECTIVE: Patient reports feeling fine. Unable to appreciate any changes to his LE. Erythema and swelling relatively unchanged according to patient. OBJECTIVE PHYSICAL EXAMINATION: VITAL SIGNS: Please see below. General: No acute distress, Alert Eyes: Normal sclera, EOMI, JOLEEN HENT: Atraumatic, neck supple, moist mucous membranes Cardiovascular: Normal rate, normal rhythm. No murmurs appreciated. 1+ pitting edema b/l. Pulmonary: Clear to auscultation b/l, no wheezing GI: Soft, nontender, nondistended Skin: b/l erythema and swelling of LE below the knee circumferential. Tender on palpation. Neuro: CN grossly intact. No focal deficits. Strengths equal b/l. Psych: oriented x 3 LABORATORY DATA, IMAGING STUDIES, MICROBIOLOGY: Please see below. ASSESSMENT AND PLAN: 1. LE erythema and swelling - cellulitis vs. stasis dermatitis. - Given bilaterality of erythema, unlikely to be cellulitis. - Would consider contact dermatitis but patient does not wear any knee high socks and normally doesn't wear shorts to have exposure to any environmental factors. - had received Abx last wednesday without any improvement and was briefly placed on vancomycin here. - Discussed with dermatology, recommended triamcinolone ointment BID and compression stocking. No Abx at this time. - ECHO ordered to assess valvular disease and any underlying HF. Has history of IV drug use cocaine and heroin on methadone currently. 2. Polysubstance abuse history - currently on methadone 30 mg daily. - continue home dose. 3. Bipolar disorder - c./w home meds. [place].. Patient appeared to be noncompliant. Refusing therapies including Lovenox. States that he will leave tomorrow morning early regardless of what workup is needed/pending. In a [facility] house currently. DVT ppx: Lovenox (patient has been refusing). Code status: Full code. VS, I&O, 24H, Fishbone Vital Signs/I&O Vital Signs Date Time Temp Pulse Resp B/P (MAP) Pulse Ox O2 Delivery O2 Flow Rate FiO2 11/01/18 14:00 97.8 73 20 135/76 (95) 97 10/31/18 14:18 Room Air I&O- Last 24 Hours up to 6 AM 11/01/18 06:00 Intake Total 2410 ml Output Total 120 ml Balance 2290 ml Laboratory Data 24H LABS Laboratory Tests 2 10/31/18 17:56: Lab Scanned Report LAB OTHER 10/31/18 20:05: Lactic Acid Level 0.7, [place] Level 0.35L 10/31/18 20:46: Bedside Glucose (Misc Panel) 129H 10/31/18 23:51: Urine Color YELLOW, Urine Appearance CLEAR, Urine pH 6.0, Urine Specific [place] 1.006, Urine Protein NEGATIVE, Urine Glucose (UA) NEGATIVE, Urine Ketones NEGATIVE, Urine Blood NEGATIVE, Urine Nitrite NEGATIVE, Urine Bilirubin NEGATIVE, Urine Urobilinogen 2.0H, Urine Leukocyte Esterase NEGATIVE, Urine WBC (Auto) 0, Urine RBC (Auto) 4H, Urine Hyaline Casts (Auto) 0, Urine Bacteria (Auto) NEGATIVE, Urine Squamous Epithelial Cells 0, Urine Sperm (Auto) 11/01/18 05:20: Bedside Glucose (Misc Panel) 124H 11/01/18 05:27: Nucleated Red Blood Cells % (auto) 0.0, Anion Gap 5L, Glomerular Filtration Rate > 60.0, Blood Urea Nitrogen 13, Creatinine 0.97, Sodium Level 138, Potassium L evel 4.0, Chloride Level 104, Carbon Dioxide Level 29, Calcium Level 7.9L, Aspartate Amino Transf (AST/SGOT) 23, Alanine Aminotransferase (ALT/SGPT) 35, Alkaline Phosphatase 56, Total Bilirubin 0.6, Total Protein 6.8, Albumin 2.8L, Albumin/Globulin Ratio 0.70L, Procalcitonin 0.15 11/01/18 11:35: Bedside Glucose (Misc Panel) 90 CBC/BMP Laboratory Tests 11/01/18 05:27 Red Blood Count 4.34, Mean Corpuscular Volume 89.4, Mean Corpuscular Hemoglobin 29.5, Mean Corpuscular Hemoglobin Concent 33.0, Red Cell Distribution Width 12.7, Calcium Level 7.9 L, Aspartate Amino Transf (AST/SGOT) 23, Alanine Aminotransferase (ALT/SGPT) 35, Alkaline Phosphatase 56, Total Bilirubin 0.6, Total Protein 6.8, Albumin 2.8 L Microbiology Microbiology 10/31/18 Blood Culture, Received Pending 10/31/18 Blood Culture - Preliminary, Resulted No growth after 24 hours . All specim... MICHELLE ALBRECHT MD November 01, 2018 15:54
[2018-11-01 18:00] VITALS: BP 135/88
[2018-11-01] MEDS: OLANZapine 10 MG TAB PO SCH (20:11)
[2018-11-01] MEDS: hydrOXYzine 50 MG TAB PO SCH (20:12)
[2018-11-01 22:00] VITALS: BP 133/85
[2018-11-02 02:00] VITALS: BP 158/83
[2018-11-02 06:00] VITALS: BP 137/74
[2018-11-02] MEDS: METHADONE 10 MG TAB (S0109) PO SCH (08:45)
[2018-11-02] MEDS: PANTOPRAZOLE 40MG TAB (PROTONIX) PO SCH (08:45)
[2018-11-02] MEDS: LITHIUM CARBONATE 300 MG CAP PO SCH (08:45)
[2018-11-02] MEDS: buPROPion **XL** TABLET 150MG (WELLBUTRIN XL) PO SCH (08:46)
[2018-11-02] MEDS: ENOXAPARIN 40 MG/0.4 ML SYRINGE (J1650) SC SCH (08:46)
[2018-11-02] MEDS: TRIAMCINOLONE ACET 0.1% OINTMENT 15 GM TOP SCH (08:47)
[2018-11-02] MEDS ORDERED: TRIA1OI80 TOP (11:30)
--- NOTE | 2018-11-02 16:28 | DS.PDOC ---
Discharge Summary General Date of Admission October 31, 2018 at 17:56 Date of Discharge 11/02/18. Discharge Summary PROCEDURES PERFORMED DURING STAY: None. ADMITTING/DISCHARGE DIAGNOSES: Bilateral lower extremity redness secondary to contact dermatitis COMPLICATIONS/CHIEF COMPLAINT: Cellulitis. HISTORY OF PRESENT ILLNESS: . 43-year-old male with past medical history of polysubstance drug abuse, hepatitis C, bipolar disorder presented from a custodial house with a chief complaint of bilateral lower extremity redness. The patient states that this began 7 days ago. He denied any complaints of fevers, chills, chest pain, palpitations, shortness of breath, PND, orthopnea, or any nausea/vomiting/diarrhea. In the ER, an ultrasound of the lower extremities revealed no evidence of DVT. The patient was admitted to the hospitalist service for treatment of possible cellulitis versus contact dermatitis. During hospitalization, the patient remained afebrile with a normal white blood cell count. Due to the bilateral nature of the patient's presentation, and lack of evidence for infectious etiology it was deemed that this is likely contact dermatitis. Dermatology was consulted and recommended a trial of triamcinolone. The patient's bilateral lower extremity redness significantly improved after applying triamcinolone cream. At this time, the patient states that he is feeling much better, and is eager to return home. I did discuss getting any 2-D echocardiogram done on the patient while he is hospitalized here due to the lower extremity edema, however this improved. The patient assured me that he will follow up with his PCP within 7 days and get a 2-D echocardiogram done as an outpatient. The patient has been counseled to follow-up with his primary care physician within 7 days. Lastly, the patient has been told to return to the ER for any acute emergencies. DISCHARGE MEDICATIONS: Please see below. ALLERGIES: Please see below. PHYSICAL EXAMINATION ON DISCHARGE: VITAL SIGNS: Please see below. General: No acute distress, Alert Eyes: Normal sclera, EOMI, JOLEEN HENT: Atraumatic, neck supple, moist mucous membranes Cardiovascular: Normal rate, normal rhythm. No murmurs appreciated. 1+ pitting edema b/l. Pulmonary: Clear to auscultation b/l, no wheezing GI: Soft, nontender, nondistended Skin: b/l erythema and swelling of LE below the knee circumferentially. Non Tender on palpation. Improved Redness. Neuro: CN grossly intact. No focal deficits. Strengths equal b/l. Psych: oriented x 3 LABORATORY DATA: Please see below. IMAGING: Clinical: Bilateral pain and swelling with cellulitis. Technique: Casas scale and color Doppler evaluation using linear high frequency transducer. Findings: Ultrasound examination of the right and left lower extremity deep venous structures from the common femoral vein to the popliteal vein demonstrates normal compressibility flow and wave patterns in response to respiration and augmentation. There is no evidence for deep venous thrombosis. Mild subcutaneous edema is appreciated along with bilateral inguinal lymph nodes measuring up to 5.1 x 1.1 x 1.7 cm on the right and 4.1 x 2.6 x 1.1 cm on the left. Impression: No evidence for deep venous thrombosis. Mild edema and inguinal adenopathy. PROGNOSIS: Fair ACTIVITY: As tolerated. DIET: 2 g low sodium diet DISCHARGE PLAN: DISPOSITION: Home, Self-Care. DISCHARGE INSTRUCTIONS: The patient has been counseled to follow-up with his primary care physician within 7 days. Lastly, the patient has been told to return to the ER for any acute emergencies. DISCHARGE CONDITION: Stable. TIME SPENT ON DISCHARGE: Greater than 30 minutes. Vital Signs/I&Os Vital Signs Date Time Temp Pulse Resp B/P (MAP) Pulse Ox O2 Delivery O2 Flow Rate FiO2 11/02/18 06:00 98.4 72 17 137/74 (95) 100 10/31/18 14:18 Room Air I&O- Last 24 Hours up to 6 AM 11/02/18 06:00 Intake Total 2640 ml Output Total 0 ml Balance 2640 ml Laboratory Data Labs 24H Laboratory Tests 2 11/01/18 16:49: Bedside Glucose (Misc Panel) 115H 11/01/18 20:46: Bedside Glucose (Misc Panel) 113H 11/02/18 06:20: Bedside Glucose (Misc Panel) 111H FSBS Laboratory Tests Test 11/01/18 16:49 11/01/18 20:46 11/02/18 06:20 Range/Units Bedside Glucose (Misc Panel) 115 113 111 70-105 MG/DL Microbiology Microbiology 10/31/18 Blood Culture - Preliminary, Resulted No growth after 24 hours . All specim... 10/31/18 Blood Culture - Preliminary, Resulted No Growth after 48 hours. All Specime... Discharge Medications Scheduled Bupropion Hcl (Bupropion Xl) 150 Mg Tab.er.24h, 150 MG PO DAILY, (Reported) Hydroxyzine Pamoate (Hydroxyzine Pamoate) 50 Mg Capsule, 50 MG PO QHS, (R eported) Alanson Carbonate (Alanson Carbonate) 150 Mg Capsule, 150 MG PO BID, (Reported) TAKE WITH 300MG CAP. 450MG TOTAL Alanson Carbonate (Alanson Carbonate) 300 Mg Capsule, 300 MG PO BID, (Reported) TAKE WITH 150MG CAP. 450MG TOTAL Methadone HCl (Methadone HCl) 5 Mg/5 Ml Solution, 30 MG PO DAILY, (Reported) Olanzapine (Olanzapine) 10 Mg Tablet, 10 MG PO QHS, (Reported) Omeprazole (Omeprazole) 20 Mg Capsule.dr, 20 MG PO DAILY, (Reported) Triamcinolone Acet (Triamcinolone Acetonide 0.1% Oint) 80 Gm Oint...g., 1 APLCT TOP BID apply to affected area(s) Scheduled PRN Acetaminophen (Acetaminophen) 500 Mg Tablet, 1,000 MG PO Q6H PRN for PAIN / FEVER, (Reported) Ibuprofen (Ibuprofen) 600 Mg Tablet, 600 MG PO Q8H PRN for PAIN, (Reported) Allergies Coded Allergies: No Known Allergies (Unverified , 01/07/18) SALVATORE REYES MD November 02, 2018 16:28
== END 2018-11-02 12:10 | disposition home or self-care (01) ==
LOC: M ED 14:17 → M ED INP 17:56 → M MSPAV 20:34
PROVIDERS: ADMIT Internal Medicine Nephrology; ATTEND Internal Medicine
DX: L25.9 Unspecified contact dermatitis, unspecified cause (principal); R60.0 Localized edema; R59.0 Localized enlarged lymph nodes; F41.9 Anxiety disorder, unspecified; Z86.19 Personal history of other infectious and parasitic diseases; F19.11 Other psychoactive substance abuse, in remission; K21.9 Gastro-esophageal reflux disease without esophagitis; I47.1 Supraventricular tachycardia; Z79.899 Other long term (current) drug therapy; F17.210 Nicotine dependence, cigarettes, uncomplicated
CPT/HCPCS: 36415; 80048; 80053; 80076; 80178; 81001; 83605; 83880; 84145; 85025; 85027; 85652; 86140; 87040; 93005; 93970; 96361; 96365; 96366; 96375; 99284; J1885; J3370

== ENCOUNTER → 2018-11-17 | Outpatient (CLI) | payer OTHER ==
[~2018-11-17] MED LIST changes: +ACET-683 PO; +ACET1TAB55 PO; +BUPR150T3 PO; +HYDR50CA2 PO; +IBUP1TAB6 PO; +LITH150C PO; +LITH300C PO; +METH10TA2 PO; +METH5SOL PO; +OLAN10TA2 PO; +OMEP-218 PO; +TRIA1OI80 TOP
--- NOTE | 2018-11-17 08:23 | ECGEPIP ---
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
== END ==
LOC: M LAB 07:05
PROVIDERS: ATTEND Nurse Practitioner Family
DX: Z51.81 Encounter for therapeutic drug level monitoring (principal); Z79.899 Other long term (current) drug therapy; F31.9 Bipolar disorder, unspecified

== ENCOUNTER → 2018-11-30 | Outpatient (REF) ==
[2018-11-30 14:17] LABS: RUBELLA IgG QUALITATIVE IMMUNE (IMMUNE)
== END ==
LOC: M LAB 10:47
PROVIDERS: ATTEND Nurse Practitioner Adult Health
DX: Z00.00 Encounter for general adult medical examination without abnormal findings (principal)

== ENCOUNTER → 2018-12-07 | Outpatient (CLI) | payer OTHER | LOC: M LAB 07:40 | PROVIDERS: ATTEND Nurse Practitioner Family | DX: F31.9 Bipolar disorder, unspecified (principal) ==

== ENCOUNTER → 2018-12-14 | Outpatient (CLI) | payer OTHER ==
[2018-12-14 12:22] LABS: LITHIUM LEVEL 0.75 MEQ/L (0.60-1.20); POTASSIUM SERUM 4.4 MEQ/L (3.5-5.1)
== END ==
LOC: M LAB 11:17
PROVIDERS: ATTEND Nurse Practitioner Family
DX: F31.9 Bipolar disorder, unspecified (principal)

== ENCOUNTER → 2019-03-26 | Outpatient (CLI) | payer OTHER ==
--- NOTE | 2019-03-29 09:53 | SLEEPCENT ---
DATE OF STUDY: 03/26/2019 ORDERED BY: FOX Bob Nocturnal polysomnography was performed for evaluation of sleep physiology in this patient with a history of excessive somnolence and nonrestorative sleep who has comorbidities of acid reflux disease, cardiac dysrhythmia. 8 hours and 10 minutes of data were reviewed. There were 441 minutes of sleep identified. Sleep latency was short at 0.5 minutes. Rapid eye movement (REM) latency was normal at 100 minutes. Sleep architecture showed fragmentation and poor progression. There were two REM cycles noted. Overall sleep efficiency was 91.4%. The patient's electrocardiogram showed sinus rhythm with an average heart rate of 75 beats per minute. EEG showed normal waveforms for awake and sleep. There were 722 respiratory events identified of 10 seconds in duration or greater for an apnea-hypopnea index of 98.2. The events were most frequently of mixed character, mixed and central apneas comprising 532 of the 722 events. The events were not exclusive to sleep stage nor body posture. Arousals were seen 27.5 times per hour from respiratory events and oxygen desaturations were seen into the 60s. IMPRESSION: Severe complex obstructive sleep apnea syndrome (G47.31, G47.33). Apnea-hypopnea index 98.2. RECOMMENDATION: The patient should be encouraged to return to sleep disorder center at his earliest convenience for pressure therapy. As his disorder is complex, and more than 50% of the events were central in nature, a bilevel device and backup rate may be needed. In the interim, alcohol and sedative avoidance should be practiced and caution exercised during operation of motor vehicles. cc: Popeye Wei MD, FACC
== END ==
LOC: M SLEEP 20:00
PROVIDERS: ATTEND Nurse Practitioner Family
DX: R40.0 Somnolence (principal)

== ENCOUNTER → 2019-04-27 | Outpatient (CLI) | payer OTHER ==
[2019-04-27 07:06] LABS: APPEARANCE, URINE CLEAR (CLEAR); BACTERIA, URINE AUTO NEGATIVE (NEGATIVE); BILIRUBIN, URINE AUTO NEGATIVE (NEGATIVE); BLOOD, URINE BLOOD 1+ (NEGATIVE); COLOR, URINE YELLOW (YELLOW); GLUCOSE, URINE (UA) AUTO NEGATIVE (NEGATIVE); KETONE, URINE AUTO NEGATIVE (NEGATIVE); LEUKOCYTE ESTERASE, URINE AUTO NEGATIVE (NEGATIVE); NITRITE, URINE AUTO NEGATIVE (NEGATIVE); PROTEIN, URINE AUTO NEGATIVE (NEGATIVE); RBC, URINE AUTO 3 /HPF (0-3); SPECIFIC GRAVITY URINE AUTO 1.016 (1.002-1.035); SQUAMOUS EPITHELIAL CELL UR AU 0 /HPF (0-6); UROBILINOGEN, URINE AUTO 0.2 mg/dL (0.0-2.0); WBC, URINE AUTO 0 /HPF (0-3)
[2019-04-27 07:24] LABS: BASO # 0.1 10^3/uL (0.0-0.2); BASO % 0.9 % (0.0-1.0); EOS # 0.4 10^3/uL (0.0-0.5); EOS % 4.5 % (0.0-3.0); HEMATOCRIT 46.7 % (42.0-52.0); HEMOGLOBIN 14.9 g/dl (13.5-17.5); LYMPH # 2.4 10^3/uL (1.5-5.0); LYMPH % 30.2 % (24.0-44.0); MEAN CORPUSCULAR HEMOGLOBIN 27.9 pg (27.0-33.0); MEAN CORPUSCULAR HGB CONC 31.9 g/dl (32.0-36.5); MEAN CORPUSCULAR VOLUME 87.5 fl (80.0-96.0); MONO # 0.7 10^3/uL (0.0-0.8); MONO % 9.1 % (0.0-5.0); NEUTROPHILS # 4.4 10^3/uL (1.5-8.5); NEUTROPHILS % 54.9 % (36.0-66.0); PLATELET COUNT, AUTOMATED 213 10^3/uL (150-450); RED BLOOD COUNT 5.34 10^6/uL (4.30-6.10)
[2019-04-27 07:40] LABS: ALBUMIN 3.5 GM/DL (3.2-5.2); ALT/SGPT 93 U/L (12-78); BILIRUBIN,TOTAL 0.2 MG/DL (0.2-1.0); BLOOD UREA NITROGEN 27 MG/DL (7-18); CALCIUM LEVEL 9.1 MG/DL (8.5-10.1); CARBON DIOXIDE LEVEL 29 MEQ/L (21-32); CHLORIDE LEVEL 105 MEQ/L (98-107); CHOLESTEROL LEVEL 249 MG/DL (<200); CHOLESTEROL RISK RATIO 8.032 (<5); CREATININE FOR GFR 1.02 MG/DL (0.70-1.30); GLOMERULAR FILTRATION RATE > 60.0 (>60); GLUCOSE, FASTING 141 MG/DL (70-100); HDL CHOLESTEROL 31 MG/DL (>40); NON-HDL-C 218 MG/DL; POTASSIUM SERUM 4.3 MEQ/L (3.5-5.1); SODIUM LEVEL 140 MEQ/L (136-145); TOTAL PROTEIN 7.1 GM/DL (6.4-8.2); TRIGLYCERIDES LEVEL 598 MG/DL (<150)
[2019-04-27 12:48] LABS: LITHIUM LEVEL 0.51 MEQ/L (0.60-1.20)
== END ==
LOC: M LAB 06:41
PROVIDERS: ATTEND Nurse Practitioner Family
DX: F31.9 Bipolar disorder, unspecified (principal)

== ENCOUNTER → 2019-05-02 | Outpatient (REF) | payer OTHER ==
[2019-05-02 14:29] LABS: BASO # 0.1 10^3/uL (0.0-0.2); BASO % 0.7 % (0.0-1.0); EOS # 0.2 10^3/uL (0.0-0.5); EOS % 2.1 % (0.0-3.0); HEMATOCRIT 48.5 % (42.0-52.0); HEMOGLOBIN 15.7 g/dl (13.5-17.5); LYMPH # 2.7 10^3/uL (1.5-5.0); LYMPH % 27.8 % (24.0-44.0); MEAN CORPUSCULAR HGB CONC 32.4 g/dl (32.0-36.5); MEAN CORPUSCULAR VOLUME 86.6 fl (80.0-96.0); MONO # 0.7 10^3/uL (0.0-0.8); MONO % 7.8 % (0.0-5.0); NEUTROPHILS # 5.9 10^3/uL (1.5-8.5); NEUTROPHILS % 61.3 % (36.0-66.0); PLATELET COUNT, AUTOMATED 282 10^3/uL (150-450); WHITE BLOOD COUNT 9.5 10^3/uL (4.0-10.0)
[2019-05-02 14:41] LABS: ALT/SGPT 93 U/L (12-78); BILIRUBIN,TOTAL 0.4 MG/DL (0.2-1.0); BLOOD UREA NITROGEN 29 MG/DL (7-18); CALCIUM LEVEL 9.1 MG/DL (8.5-10.1); CARBON DIOXIDE LEVEL 27 MEQ/L (21-32); CHLORIDE LEVEL 106 MEQ/L (98-107); CREATININE FOR GFR 1.06 MG/DL (0.70-1.30); FOLATE 9.3 NG/ML; GLOMERULAR FILTRATION RATE > 60.0 (>60); GLUCOSE, FASTING 92 MG/DL (70-100); POTASSIUM SERUM 4.6 MEQ/L (3.5-5.1); RHEUMATOID FACTOR QUANT < 10.0 IU/ML (<15.0); SODIUM LEVEL 138 MEQ/L (136-145); TOTAL 25(OH) VITAMIN D 20.5 NG/ML (30.0-100.0); TOTAL PROTEIN 7.9 GM/DL (6.4-8.2); VITAMIN B12 LEVEL 509 PG/ML
[2019-05-02 15:04] LABS: ERYTHROCYTE SEDIMENTATION RATE 126 mm/hr (0-15)
[2019-05-09 00:07] LABS: ANCA-ATYPICAL <1:20 titer (Neg:<1:20); ANTI DOUBLE STRAND-DNA AB <1 IU/mL (0-9); ANTI DS-DNA AB Negative (Negative); ANTINUCLEAR ANTIBODIES DIRECT Positive (Negative); CERULOPLASMIN 27.2 mg/dL (16.0-31.0); COPPER PLASMA 130 ug/dL (72-166); CYTOPLASMIC NEUTROP AB ANCA-C <1:20 titer (Neg:<1:20); LEAD BLOOD ADULT 2 ug/dL (0-4); MERCURY LEVEL None Detected ug/L (0.0-14.9); PERINUCLEAR AB ANCA-P <1:20 titer (Neg:<1:20); RNP ANTIBODIES 0.2 AI (0.0-0.9); SJOGREN'S ANTI SS-A <0.2 AI (0.0-0.9); SJOGREN'S ANTI SS-B 0.3 AI (0.0-0.9); SMITH ANTIBODIES <0.2 AI (0.0-0.9); VITAMIN B1 LEVEL WHOLE BLOOD 199.5 nmol/L (66.5-200.0); VITAMIN B6,PYRIDOXAL PHOSPHATE 17.7 ug/L (5.3-46.7); VITAMIN E(GAMMA TOCOPHEROL) 2.5 mg/L (0.5-5.5)
== END ==
LOC: M LABNEURO 10:28
PROVIDERS: ATTEND Psychiatry & Neurology Neurology
DX: G62.9 Polyneuropathy, unspecified (principal)

== ENCOUNTER → 2019-05-10 | Outpatient (CLI) | payer OTHER ==
--- NOTE | 2019-05-12 08:33 | SLEEPCENT ---
DATE OF STUDY: 05/10/2019 ORDERED BY: FOX Bob Nocturnal polysomnography was performed for the titration of pressure therapy in this patient with obstructive sleep apnea syndrome. Apnea-hypopnea index of 98.2. For testing the patient was fit with a [employer] Quattro Mirage full-face mask of medium size; 4 cm of water pressure were initially applied to the circuit and the lights were extinguished. 6 hours and 58 minutes of data were reviewed. There were 372 minutes of sleep identified. Sleep latency was short at 7 minutes. Rapid eye movement (REM) latency was delayed at 174 minutes. Sleep architecture was good with two long REM cycles. Overall sleep efficiency was 90.1%. The patient's electrocardiogram showed a sinus rhythm with an average heart rate of 96 beats per minute. Electroencephalogram (EEG) showed normal waveforms for awake and sleep. Persistence of respiratory events prompted increases CPAP pressure and despite optimal mask fit and minimal air leak the patient required changed to a bilevel device. Pressure titration late in the study led to an optimal pressure of inspiratory 20 over expiratory 16. There was little data at this level but despite mild hypopneic events the patient did not display significant oxygen desaturations. IMPRESSION: Obstructive sleep apnea syndrome (G47.33). RECOMMENDATIONS: Nightly use of pressure therapy delivered via bilevel device inspiratory of 20 over expiratory 16. Given the complexity of this titration, close clinical followup will be necessary to assure improvement.
== END ==
LOC: M SLEEP 20:01
PROVIDERS: ATTEND Nurse Practitioner Family
DX: G47.33 Obstructive sleep apnea (adult) (pediatric) (principal)

== ENCOUNTER → 2019-06-19 | Outpatient (CLI) | payer OTHER, MEDICAID ==
[2019-06-19 11:45] LABS: BASO # 0.1 10^3/uL (0.0-0.2); BASO % 0.9 % (0.0-1.0); EOS # 0.3 10^3/uL (0.0-0.5); EOS % 4.4 % (0.0-3.0); HEMATOCRIT 44.7 % (42.0-52.0); HEMOGLOBIN 14.1 g/dl (13.5-17.5); LYMPH % 30.8 % (24.0-44.0); MEAN CORPUSCULAR HEMOGLOBIN 27.6 pg (27.0-33.0); MEAN CORPUSCULAR HGB CONC 31.5 g/dl (32.0-36.5); MEAN CORPUSCULAR VOLUME 87.5 fl (80.0-96.0); MONO # 0.7 10^3/uL (0.0-0.8); MONO % 10.7 % (0.0-5.0); NEUTROPHILS # 3.4 10^3/uL (1.5-8.5); NEUTROPHILS % 52.7 % (36.0-66.0); PLATELET COUNT, AUTOMATED 145 10^3/uL (150-450); RED BLOOD COUNT 5.11 10^6/uL (4.30-6.10); WHITE BLOOD COUNT 6.5 10^3/uL (4.0-10.0)
[2019-06-19 12:26] LABS: ALBUMIN 3.9 GM/DL (3.2-5.2); ALT/SGPT 367 U/L (12-78); BILIRUBIN,TOTAL 0.3 MG/DL (0.2-1.0); BLOOD UREA NITROGEN 20 MG/DL (7-18); CALCIUM LEVEL 8.7 MG/DL (8.5-10.1); CARBON DIOXIDE LEVEL 27 MEQ/L (21-32); CHLORIDE LEVEL 106 MEQ/L (98-107); CREATININE FOR GFR 0.94 MG/DL (0.70-1.30); GLOMERULAR FILTRATION RATE > 60.0 (>60); GLUCOSE, FASTING 106 MG/DL (70-100); LITHIUM LEVEL < 0.20 MEQ/L (0.60-1.20); POTASSIUM SERUM 4.4 MEQ/L (3.5-5.1); SODIUM LEVEL 140 MEQ/L (136-145); THYROXINE (T4) 9.8 UG/DL (4.5-12.0); TOTAL PROTEIN 7.2 GM/DL (6.4-8.2)
[2019-06-19 13:11] LABS: TOTAL T3 157.6 NG/DL (60.0-181.0)
== END ==
LOC: M LAB 10:54
PROVIDERS: ATTEND Nurse Practitioner Family
DX: F11.20 Opioid dependence, uncomplicated (principal); F31.9 Bipolar disorder, unspecified